=== PATIENT | female | born 1960 | race Hispanic/Latino ===

== ENCOUNTER 2017-07-02 13:34 | Outpatient (CLI) | payer BC ==
--- NOTE | 2017-07-05 15:07 | MMO ---
BILATERAL SCREENING MAMMOGRAM: Date: 07/02/17 INDICATION: Annual exam. COMPARISON: Prior exam dated 04/06/15. FINDINGS: Interpretation of this exam was assisted with computer-aided detection. There are scattered fibroglandular elements bilaterally. There are benign-appearing calcifications bi laterally. No new suspicious mass, cluster of microcalcifications, or area of architectural distortion is eviden t. IMPRESSION: BIRADS 2: Benign Finding(s) Recommend routine annual mammographic screening. POS: [facility]
== END 2017-07-02 13:35 | disposition home or self-care (01) ==
LOC: SCSMAMMO 13:34
PROVIDERS: ATTEND Family Medicine
DX: Z12.31 Encounter for screening mammogram for malignant neoplasm of breast (principal)
CPT/HCPCS: 77067

== ENCOUNTER 2017-11-09 15:29 | Inpatient (IN) | payer BC, SELFPAY ==
[2017-11-09 16:01] LABS: #Basophils 0.1 thou/uL (0.0-0.2); #Eosinphils 0.1 thou/uL (0.0-0.7); #Monocytes 0.5 thou/uL (0.11-0.59); #Neutrophils 4.5 thou/uL (1.40-6.50); %Basophils 0.7 % (0.0-1.0); %Eosinophils 1.5 % (0.0-10.0); %Lymphocytes 28.2 % (21.0-51.0); %Monocytes 7.4 % (0.0-10.0); %Neutrophils 62.2 % (42.0-75.0); Hemoglobin 13.5 g/dL (12.0-16.0); Mean Corpuscular HGB CONC 33.9 g/dL (32.0-36.0); Mean Corpuscular Hemoglobin 30.6 pg (27.0-31.0); Mean Corpuscular Volume 90.2 fL (78.0-98.0); Mean Platelet Volume 7.8 fL (7.4-10.4); Platelet Count 195 thou/uL (130-400); RBC Distribution Width 11.9 % (11.5-14.5); Red Blood Cell (RBC) Count 4.42 mill/uL (4.20-5.40); White Blood Cell (WBC) Count 7.2 thou/uL (4.8-10.8)
[2017-11-09 16:24] LABS: ALT (SGPT) 21 U/L (8-55); AST (SGOT) 22 U/L (5-34); Alkaline Phosphatase 130 U/L (40-150); Anion Gap 18 mmol/L (10-20); BUN (Urea Nitrogen) 37 mg/dL (9.8-20.1); Bilirubin, Total 0.3 mg/dL (0.2-1.2); Calc. Creatinine Clearance 0 mL/min (70-130); Calcium 9.6 mg/dL (7.8-10.44); Carbon Dioxide 24 mmol/L (22-29); Chloride 96 mmol/L (98-107); Estimated GFR-MDRD 38; Globulin 3.6 g/dL (2.4-3.5); Glucose 685 mg/dL (70-105); Magnesium 2.4 mg/dL (1.6-2.6); Phosphorus 4.1 mg/dL (2.3-4.7); Potassium 4.8 mmol/L (3.5-5.1); Protein, Total 7.6 g/dL (6.0-8.3); Sodium 133 mmol/L (136-145)
[2017-11-09 16:25] LABS: CKMB 2.5 ng/mL (0-6.6); Troponin I Less than 0.010 ng/mL (< 0.028)
[2017-11-09] MEDS ORDERED: Insulin Regular 300 UNITS/3 ML VIAL ONE (16:29)
[2017-11-09] MEDS ORDERED: Ondansetron HCl/PF 4 MG/2 ML Vial ONE (16:29)
[2017-11-09 18:14] LABS: Bilirubin Negative (Negative); Blood, Urine Negative (Negative); Clarity CLEAR (Clear); Glucose, Urine (Dipstick) >=1000 mg/dL (Negative); Leukocyte Negative (Negative); Nitrite Negative (Negative); Protein, Urine (Dipstick) Negative (Neg-Trace); Specific Gravity, Urine 1.034 (1.002-1.036); Urobilinogen 0.2 mg/dL (0.2-1.0); pH, Urine 5.5 (5.0-9.0)
[2017-11-09] MEDS: Sodium Chloride 0.9% 1,000 ML IV SCH (18:39)
[2017-11-09] MEDS ORDERED: Ondansetron ODT 4 MG TAB SL PRN (19:07)
[2017-11-09] MEDS ORDERED: Ondansetron HCl/PF 4 MG/2 ML Vial IVP PRN (19:07)
[2017-11-09] MEDS ORDERED: Acetaminophen 325 MG TAB PO PRN (19:07)
[2017-11-09 19:30] VITALS: TEMP 98.5
[2017-11-09] MEDS ORDERED: Dextrose 5% in Water 1,000 ML IV PRN (21:37)
[2017-11-09] MEDS ORDERED: HumaLOG 300 UNITS/3 ML VIAL SC PRN (21:37)
[2017-11-09] MEDS ORDERED: Dextrose 50% Abboject 50 ML SYRINGE SLOW IVP PRN (21:37)
[2017-11-09 21:55] VITALS: BMI 20.5
[2017-11-10] MEDS: Sodium Chloride 0.9% 1,000 ML IV SCH (04:45)
[2017-11-10 04:54] LABS: #Basophils 0.1 thou/uL (0.0-0.2); #Eosinphils 0.2 thou/uL (0.0-0.7); #Monocytes 0.6 thou/uL (0.11-0.59); #Neutrophils 2.6 thou/uL (1.40-6.50); %Basophils 1.2 % (0.0-1.0); %Eosinophils 3.6 % (0.0-10.0); %Lymphocytes 46.6 % (21.0-51.0); %Monocytes 8.7 % (0.0-10.0); %Neutrophils 39.8 % (42.0-75.0); Hemoglobin 12.2 g/dL (12.0-16.0); Mean Corpuscular HGB CONC 34.4 g/dL (32.0-36.0); Mean Corpuscular Hemoglobin 31.2 pg (27.0-31.0); Mean Corpuscular Volume 90.5 fL (78.0-98.0); Mean Platelet Volume 7.4 fL (7.4-10.4); Platelet Count 174 thou/uL (130-400); RBC Distribution Width 12.1 % (11.5-14.5); Red Blood Cell (RBC) Count 3.91 mill/uL (4.20-5.40); White Blood Cell (WBC) Count 6.5 thou/uL (4.8-10.8)
--- NOTE | 2017-11-10 05:10 | HP ---
CODE STATUS: FULL CODE. PRIMARY CARE PHYSICIAN: Jack Hanson M.D. TIME OF EVALUATION: 07:50 p.m. CHIEF COMPLAINT: High blood sugar and increased urinary frequency. HISTORY OF PRESENT ILLNESS: This is a 56-year-old female patient with past medical history of diabet es, had been adjusting medications in the past, patient came because patient received evaluation for dizziness and visited and urgent care, they found the blood sugar was very high, she also reported as sociated polydipsia and polyuria, likely secondary to uncontrolled diabetes, no alleviating factors. REVIEW OF SYSTEMS: Constitutional: No fever or chills, generalized weakness. Respiratory: No coug h, sputum production or shortness of breath. Cardiovascular: No chest pain, palpitations, or shortn ess of breath. Gastrointestinal: No nausea, no vomiting, diarrhea or abdominal pain. 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 Genitourinary: No burning on urination. Extremities: No l eg swelling. Endocrine: Polyuria, polydipsia. All other systems were reviewed and were negative ex cept for the findings mentioned above. PAST MEDICAL HISTORY: Positive for diabetes, GERD, hypertension. PAST SURGICAL HISTORY: Hysterectomy. SOCIAL HISTORY: No alcohol use. FAMILY HISTORY: Coronary artery disease in the mother . ALLERGIES: No known drug allergies. REPORTED MEDICATIONS: Simvastatin, lisinopril, hydrochlorothiazide, Lantus 50 units once a day at [facility]. PHYSICAL EXAMINATION: VITAL SIGNS: On presentation, blood pressure 134/67 with heart rate 88, respiratory rate was 18, tem perature 98.6. GENERAL APPEARANCE: The patient is alert, oriented, not in any acute distress. HEENT: Eyes, normal conjunctivae. Moist oral mucosa. Anicteric. NECK: No JVD. RESPIRATORY: Bilateral air entry. No rales, no wheezing. Symmetric expansion. CARDIOVASCULAR: Normal rate, regular rhythm. No murmurs, no gallop. No edema. ABDOMEN: Soft, normal bowel sounds. MUSCULOSKELETAL: Baseline range of motion and strength. No tenderness. SKIN: Warm and intact. No pallor, no rash, no redness. NEUROLOGIC: Baseline sensory. No evidence of any new focal weakness. Baseline speech. Cranial ner ves seem to be intact. PSYCHIATRIC: The patient is in good mood. No anxiety. Oriented, optimal judgment. IMAGING: EKG was reviewed. The patient has normal sinus rhythm, possible left atrial enlargement, v entricular rate 84, NC 156, QRS 80, QT corrected 451. LABORATORY DATA: Her labs were reviewed. White count was 7.2, hemoglobin 13.5, MCV 90, platelet cou nt 195. Sodium is 133, potassium 4.8, chloride 96, carbon dioxide 24, anion gap 18, BUN 37 with crea tinine 1.43. The previous creatinine was 0.7 as per old records. GFR 38. Glucose 685, repeat one w as 301 and 209. Calcium 9.6, phosphorus 4.1, magnesium 2.4, total bilirubin 0.3. LFTs were normal. Globulin 3.6. Troponin was normal. The urine was done and showed ketonuria and glucosuria. Beta-h ydroxybutyrate on presentation was 1.41. ASSESSMENT AND PLAN: The patient will be placed in the hospital with following medical problems. 1. Uncontrolled diabetes. The patient presented with blood sugar 325, patient will need medication reconciliation especially with insulin before going home, and also I have discussed with her control of her diet and looks like she is not being compliant. This has gotten better control, there is no _ ____ there is normal bicarbonate, anion gap is closed. We will give hydration. We will place the pa tient on sliding scale. 2. Acute kidney injury. The patient has doubled her creatinine level from 0.7-1.4, from previous re cords, likely secondary to dehydration from diuresis from hyperglycemia, we will hydrate, we will mon itor, we will adjust treatment as needed. 3. History of hypertension, we will reconcile home medications, is controlled, chronic. 4. Deep venous thrombosis prophylaxis.
[2017-11-10 05:14] LABS: Anion Gap 12 mmol/L (10-20); BUN (Urea Nitrogen) 23 mg/dL (9.8-20.1); Calc. Creatinine Clearance 65 mL/min (70-130); Calcium 8.5 mg/dL (7.8-10.44); Carbon Dioxide 23 mmol/L (22-29); Chloride 107 mmol/L (98-107); Estimated GFR-MDRD 76; Glucose 264 mg/dL (70-105); Sodium 138 mmol/L (136-145)
[2017-11-10 07:42] VITALS: BP 109/64
[2017-11-10] MEDS: HumaLOG 300 UNITS/3 ML VIAL SC SCH ×2 (08:56→12:55)
[2017-11-10] MEDS ORDERED: Enoxaparin Sodium 40 MG/0.4 ML SYRINGE SC SCH (09:00)
[2017-11-10] MEDS ORDERED: Lisinopril/Hydrochlorothiazide 20 mg/12.5 mg Tablet PO SCH (09:00)
[2017-11-10] MEDS ORDERED: Prevnar 13-Val Conj/PF 0.5 ML SYRINGE IM ONE (09:00)
[2017-11-10] MEDS ORDERED: INSULIN LISPRO 5 UNIT SC SCH (09:00)
--- NOTE | 2017-11-10 16:12 | PDOC.PN ---
- Subjective Encounter Start Date: 11/10/17 Encounter Start Time: 16:10 Subjective: no new complaints. feels better - Objective Resuscitation Status: Resuscitation Status FULL:Full Resuscitation MAR Reviewed: Yes Vital Signs & Weight: Vital Signs (12 hours) Temp Pulse Resp BP Pulse Ox 11/10/17 10:12 73 11/10/17 08:00 98.5 F 73 16 100 11/10/17 07:40 98.5 F 73 16 109/64 100 Weight Admit Weight 116 lb 1 oz Weight 116 lb 1 oz I&O: 11/09/17 11/10/17 11/11/17 06:59 06:59 06:59 Intake Total 1000 240 Output Total 600 Balance 400 240 Result Diagrams: 11/10/17 04:09 11/10/17 04:09 Additional Labs: Accuchecks 11/10/17 11/10/17 11/09/17 12:53 04:24 20:07 POC Glucose 199 H 218 H 219 H Phys Exam - Physical Examination Constitutional: NAD HEENT: PERRLA, moist MMs, sclera anicteric, oral pharynx no lesions Neck: no nodes, no JVD, supple, full ROM Respiratory: no wheezing, no rales, no rhonchi, clear to auscultation bilateral Cardiovascular: RRR, no significant murmur, no rub Gastrointestinal: soft, non-tender, no distention, positive bowel sounds Musculoskeletal: no edema, pulses present Neurological: non-focal, normal sensation, moves all 4 limbs Dx/Plan (1) Hyperglycemia Code(s): R73.9 - HYPERGLYCEMIA, UNSPECIFIED Status: Acute (2) Diabetes mellitus type 2 in obese Code(s): E11.9 - TYPE 2 DIABETES MELLITUS WITHOUT COMPLICATIONS; E66.9 - OBESITY , UNSPECIFIED Status: Acute (3) Hyperlipidemia Code(s): E78.5 - HYPERLIPIDEMIA, UNSPECIFIED Status: Acute (4) Hypertension Code(s): I10 - ESSENTIAL (PRIMARY) HYPERTENSION Status: Acute - Plan DVT proph w/SCDs restart lori meds. add Novolin 70/30 as pt can not afford Humalog -: cont lantus -: CM to assist w scrpit coverage -: DC home when arranged -: encoraged to go to PCP w BS log * . Review of Systems - Review of Systems Constitutional: negative: fever, chills, sweats, weakness, malaise, other ENT: negative: Ear Pain, Ear Discharge, Nose Pain, Nose Discharge, Nose Congestion, Mouth Pain, Mouth Swelling, Throat Pain, Throat Swelling, Other Respiratory: negative: Cough, Dry, Shortness of Breath, Hemoptysis, SOB with Excertion, Pleuritic Pain, Sputum, Wheezing Cardiovascular: negative: chest pain, palpitations, orthopnea, paroxysmal nocturnal dyspnea, edema, light headedness, other Gastrointestinal: negative: Nausea, Vomiting, Abdominal Pain, Diarrhea, Constipation, Melena, Hematochezia, Other Genitourinary: negative: Dysuria, Frequency, Incontinence, Hematuria, Retention , Other Musculoskeletal: negative: Neck Pain, Shoulder Pain, Arm Pain, Back Pain, Hand Pain, Leg Pain, Foot Pain, Other - Medications/Allergies Allergies/Adverse Reactions: Allergies Allergy/AdvReac Type Severity Reaction Status Date / Time No Known Allergies Allergy Verified 11/09/17 20:00 Medications: Current Medications Atorvastatin Calcium (Lipitor) 10 mg PO HS [facility] Dextrose/Water (Dextrose 50%) 25 gm SLOW IVP PRN PRN PRN Reason: Hypoglycemia Enoxaparin Sodium (Lovenox) 40 mg SC 0900 [facility] Last Admin: 11/10/17 08:58 Dose: 40 mg Glucagon (Glucagon) 1 mg IM PRN PRN PRN Reason: Hypoglycemia Lisinopril/HCTZ (Prinizide 20-12.5) 1 tab PO DAILY [facility] Last Admin: 11/10/17 10:12 Dose: Not Given Dextrose/Water (D5w) 1,000 mls @ 0 mls/hr IV .Q0M PRN; As Directed PRN Reason: Hypoglycemia Insulin Glargine 50 units/ (Miscellaneous Medication) 0.5 mls @ 0 mls/hr [facility] Insulin Human Lispro (Humalog) 0 units SC .MILD SLIDING SCALE PRN PRN Reason: Mild Correctional Scale Insulin Human Lispro (Humalog) 5 units SC TID [facility] Last Admin: 11/10/17 12:55 Dose: 5 units
[2017-11-10] MEDS ORDERED: Insulin Glargine 50 UNITS in Pre-Filled Syringe 1 EACH SC SCH (21:00)
[2017-11-10] MEDS ORDERED: Non-Formulary Item 1 EACH (Insulin Glargine,Hum.Rec.Anlog [Lantus Solostar] 50 UNIT) SQ SCH (21:00)
[2017-11-10] MEDS ORDERED: Simvastatin 20 MG TAB PO SCH (21:00)
[2017-11-10] MEDS ORDERED: Atorvastatin Calcium 10 MG TAB PO SCH (21:00)
--- NOTE | 2017-11-11 02:25 | DIS ---
DATE OF ADMISSION: 11/09/2017 DATE OF DISCHARGE: 11/10/2017 CONDITION AT THE TIME OF DISCHARGE: Stable and improved. PRIMARY CARE PHYSICIAN: Jack Hanson M.D. DISCHARGE DIAGNOSES: 1. Hyperglycemia secondary to medication noncompliance. 2. Diabetes mellitus, type 2. 3. Hypertension. 4. Dyslipidemia. DISCHARGE MEDICATIONS: New medications: Novolin 70/30, 15 units b.i.d. Continue home medication as per the HPI, Lantus 50 units daily, Zocor daily and Prinzide 20/12.5 mg daily. DISCHARGE DISPOSITION: Home. The patient was seen and examined prior to discharge. Please see hospitalist progress note from the date of discharge for further detail including [id number] interaction. HISTORY OF PRESENTING ILLNESS: Ms. Beckham is a known diabetic, who presented to the emergency room with complaints of weakness, polyuria, polydipsia, and was found to be significantly hyperglycemic wi th a blood sugar over 600 without evidence of diabetic ketoacidosis. She was admitted for further ev aluation. Please see admission history and physical for further details. She was hemodynamically st able. HOSPITAL COURSE: The patient reported that she was not able to afford her bolus insulin that she is supposed to take 5 NS 3 times a day. She is taking her Lantus and her medication for blood pressure. She was switched to Novolin 70/30, which is little bit cheaper and financial operations clerk was provided to th e patient with a GoodRx prescription. Her blood sugars were monitored and were under much better con trol. She was treated with insulin sliding scale as well as restarting her Lantus. She exhibited de sire to go home and after the medication was arranged and the blood sugars were control, she was disc harged.
== END 2017-11-10 18:00 | disposition home or self-care (01) | DRG 638 ==
LOC: ERS 15:29 → T4-A 17:47
PROVIDERS: ADMIT Family Medicine; ATTEND Family Medicine
DX: E11.65 Type 2 diabetes mellitus with hyperglycemia (principal); N17.9 Acute kidney failure, unspecified; K21.9 Gastro-esophageal reflux disease without esophagitis; I10 Essential (primary) hypertension; Z79.4 Long term (current) use of insulin; E86.0 Dehydration; Z91.14 Patient's other noncompliance with medication regimen; E78.5 Hyperlipidemia, unspecified
CPT/HCPCS: 36415; 36416; 80048; 80053; 81003; 82010; 82553; 83735; 84100; 84484; 85025; 87086; 93005; 96361; 96374; 96375; J1650; J1815; J2405

== ENCOUNTER 2018-05-28 17:48 | Emergency (ER) | payer SELFPAY ==
[2018-05-28] MEDS ORDERED: Proparacaine 0.5% Opth 15 ML BOT ONE (19:19)
[2018-05-28] MEDS ORDERED: Fluorescein Opthalmic Strip ONE (19:19)
--- NOTE | 2018-05-28 20:18 | CT ---
CT OF THE BRAIN WITHOUT CONTRAST 05/28/18 INDICATION: Patient had a head injury where she hit her head on a dumpster door two days ago without history of l oss of consciousness. Patient reports a contusion on the head with neck and back pain. COMPARISON: Prior CT of the brain dated 11/25/04. FINDINGS: No acute infarct, hemorrhage, or hydrocephalus is present. The septum pellucidum and third ventricle are midline. The mastoid air cells are clear. The visualized paranasal sinuses are clear. The skull is intact. IMPRESSION: No acute intracranial abnormality. POS: [facility]
== END 2018-05-28 20:23 | disposition home or self-care (01) ==
LOC: ERS 17:48
DX: S09.90XA Unspecified injury of head, initial encounter (principal); S16.1XXA Strain of muscle, fascia and tendon at neck level, initial encounter; E11.9 Type 2 diabetes mellitus without complications; K21.9 Gastro-esophageal reflux disease without esophagitis; I10 Essential (primary) hypertension; Z79.4 Long term (current) use of insulin; Z79.899 Other long term (current) drug therapy; W22.8XXA Striking against or struck by other objects, initial encounter
CPT/HCPCS: 70450

== ENCOUNTER 2019-03-07 11:23 | Emergency (ER) | payer OTHER ==
[2019-03-07 12:18] LABS: #Basophils 0.1 thou/uL (0.0-0.2); #Eosinphils 0.2 thou/uL (0.0-0.7); #Lymphocytes 1.9 thou/uL (1.20-3.40); #Monocytes 0.4 thou/uL (0.11-0.59); %Basophils 0.8 % (0.0-1.0); %Eosinophils 2.4 % (0.0-10.0); %Lymphocytes 25.2 % (21.0-51.0); %Monocytes 5.7 % (0.0-10.0); %Neutrophils 65.9 % (42.0-75.0); Hemoglobin 12.7 g/dL (12.0-16.0); Mean Corpuscular HGB CONC 33.4 g/dL (32.0-36.0); Mean Corpuscular Hemoglobin 30.1 pg (27.0-31.0); Mean Platelet Volume 7.2 fL (7.4-10.4); Platelet Count 239 thou/uL (130-400); RBC Distribution Width 12.6 % (11.5-14.5); Red Blood Cell (RBC) Count 4.21 mill/uL (4.20-5.40); White Blood Cell (WBC) Count 7.6 thou/uL (4.8-10.8)
--- NOTE | 2019-03-07 12:37 | RAD ---
PORTABLE CHEST: HISTORY: Chest pain. FINDINGS: Lung yo are clear. No infiltrate. No vascular congestion or edema. Heart size within normal ra nge. IMPRESSION: No acute process. POS: OFF
[2019-03-07 12:45] LABS: ALT (SGPT) 20 U/L (8-55); AST (SGOT) 23 U/L (5-34); Albumin 3.9 g/dL (3.5-5.0); Alkaline Phosphatase 69 U/L (40-110); Anion Gap 9 mmol/L (10-20); BUN (Urea Nitrogen) 21 mg/dL (9.8-20.1); Bilirubin, Total 0.4 mg/dL (0.2-1.2); CK (CPK) 69 U/L (29-168); Calc. Creatinine Clearance 0 mL/min (70-130); Calcium 9.3 mg/dL (7.8-10.44); Carbon Dioxide 33 mmol/L (22-29); Chloride 95 mmol/L (98-107); Estimated GFR-MDRD 71; Glucose 282 mg/dL (70-105); Protein, Total 6.9 g/dL (6.0-8.3); Sodium 133 mmol/L (136-145)
[2019-03-07] MEDS ORDERED: Ketorolac Tromethamine 30 MG/ML VIAL ONE (12:47)
[2019-03-07] MEDS ORDERED: diphenhydrAMINE 50 MG/ML VIAL ONE (12:47)
[2019-03-07] MEDS ORDERED: Ondansetron PF 4 MG/2 ML Vial ONE (12:53)
[2019-03-07] MEDS ORDERED: Meclizine HCl 25 MG TAB ONE (13:03)
--- NOTE | 2019-03-07 14:40 | CT ---
CT Cervical Spine WO Con Indication: Neck pain and dizziness COMPARISON: None. FINDINGS: Fracture: None. Spinal alignment: There is straightening of the normal cervical lordosis. There is mild anterior bello slation of C7 on T1 which is likely degenerative. There is ankylosis of the left C4-5 facet complex. Craniocervical junction: Within normal limits. Vertebral body heights: Maintained. Cervical spine degenerative change: There is advanced disc degenerative disease at C3-4 and T1-T2. Th ere is moderate to severe multilevel disc degenerative disease at the remaining cervical intervertebral levels. There is ankylosis of the left C4-C5 facet complex. Lung apices: Clear. IMPRESSION: No acute osseous abnormality. Severe cervical spondylosis
--- NOTE | 2019-03-07 14:49 | CT ---
CT HEAD WITHOUT CONTRAST: Axial tomograms were obtained without IV enhancement. INDICATION: Dizziness. FINDINGS: The ventricles have normal size and position. No evidence of intracranial mass, infarct, or hemorrha ge. IMPRESSION: No acute abnormality. POS: OFF
== END 2019-03-07 16:03 | disposition home or self-care (01) ==
LOC: ERS 11:23
DX: R42 Dizziness and giddiness (principal); E11.9 Type 2 diabetes mellitus without complications; K21.9 Gastro-esophageal reflux disease without esophagitis; I10 Essential (primary) hypertension; Z79.4 Long term (current) use of insulin; Z79.899 Other long term (current) drug therapy
CPT/HCPCS: 70450; 71045; 72125; 80053; 82550; 84484; 85025; 93005; 96361; 96374; 96375; J1200; J1885; J2405; J8597

== ENCOUNTER 2019-03-17 09:20 | Outpatient (CLI) | payer OTHER ==
--- NOTE | 2019-03-17 09:59 | MMO ---
Bilateral MAMMO Bilat Screen [facility]. CLINICAL HISTORY: Patient is 58 years old and is seen for screening. The patient has no family history of breast cancer. The patient has no personal history of cancer. VIEWS: The views performed were: bilateral craniocaudal with tomosynthesis and bilateral mediolateral oblique with tomosynthesis. FILMS COMPARED: The present examination has been compared to prior imaging studies performed at [facility] on 02/24/2010, 12/06/2012, 03/04/2014 and 03/29/2015. This study has been interpreted with the assistance of computer-aided detection. MAMMOGRAM FINDINGS: There are scattered fibroglandular densities. There are stable benign appearing calcifications seen in both breasts. There are no suspicious masses, suspicious calcifications, or new areas of architectural distortion. IMPRESSION: THERE IS NO MAMMOGRAPHIC EVIDENCE OF MALIGNANCY. A ROUTINE FOLLOW-UP MAMMOGRAM IN 1 YEAR IS RECOMMENDED. THE RESULTS OF THIS EXAM WERE SENT TO THE PATIENT. ACR BI-RADS Category 2 - Benign finding MAMMOGRAPHY NOTE: 1. A negative mammogram report should not delay a biopsy if a dominant of clinically suspicious mass is present. 2. Approximately 10% to 15% of breast cancers are not detected by mammography. 3. Adenosis and dense breasts may obscure an underlying neoplasm. Reported by: MITCH CARTWRIGHT MD Electonically Signed: [id number]
== END 2019-03-17 09:21 | disposition home or self-care (01) ==
LOC: BICMAMMO 09:20
PROVIDERS: ATTEND Family Medicine
DX: Z12.31 Encounter for screening mammogram for malignant neoplasm of breast (principal)
CPT/HCPCS: 77063; 77067

== ENCOUNTER 2022-08-15 17:20 | Observation (INO) | payer SELFPAY ==
[~2022-08-15 17:20] MED LIST: Iopamidol 370 76% 100 ML VIAL ONE
[2022-08-15] MEDS ORDERED: Famotidine/PF 20 mg/2ml Vial ONE (18:11)
[2022-08-15] MEDS ORDERED: Ondansetron PF 4 MG/2 ML Vial ONE (18:11)
[2022-08-15 18:16] LABS: #Eosinphils 0.3 thou/uL (0.0-0.7); #Monocytes 0.7 thou/uL (0.11-0.59); #Neutrophils 5.1 thou/uL (1.40-6.50); %Basophils 0.2 % (0.0-1.0); %Lymphocytes 27.5 % (21.0-51.0); %Monocytes 7.9 % (0.0-10.0); Hemoglobin 10.8 g/dL (12.0-16.0); Mean Corpuscular Hemoglobin 27.7 pg (27.0-31.0); Mean Corpuscular Volume 86.4 fl (78.0-98.0); Mean Platelet Volume 8.9 fL (7.4-10.4); Platelet Count 317 10x3/uL (130-400); RBC Distribution Width 13.9 % (11.5-14.5); White Blood Cell (WBC) Count 8.4 10x3/uL (4.8-10.8)
[2022-08-15 18:36] LABS: ALT (SGPT) 14 U/L (8-55); AST (SGOT) 19 U/L (5-34); Albumin 3.5 g/dL (3.4-4.8); Alkaline Phosphatase 112 U/L (40-110); Anion Gap 17 mmol/L (10-20); BUN (Urea Nitrogen) 54 mg/dL (9.8-20.1); Bilirubin, Total 0.2 mg/dL (0.2-1.2); Calc. Creatinine Clearance 0 mL/min (70-130); Calcium 8.5 mg/dL (7.8-10.44); Carbon Dioxide 20 mmol/L (23-31); Chloride 106 mmol/L (98-107); Estimated GFR 44; Glucose 241 mg/dL (80-115); Lipase 20 U/L (8-78); Potassium 4.7 mmol/L (3.5-5.1); Protein, Total 6.5 g/dL (5.8-8.1); Sodium 138 mmol/L (136-145)
[2022-08-15] MEDS ORDERED: Aspirin Chewable 81 MG TAB ONE (20:27)
[2022-08-15 22:45] VITALS: BMI 25.6
[2022-08-15] MEDS ORDERED: Ondansetron PF 4 MG/2 ML Vial IVP PRN (23:30)
[2022-08-15] MEDS ORDERED: Ondansetron ODT 4 MG TAB SL PRN (23:30)
[2022-08-15] MEDS ORDERED: Acetaminophen 325 MG TAB PO PRN (23:30)
[2022-08-15] MEDS ORDERED: Nitroglycerin 0.4 MG TAB (25 Tab Bottle) SL PRN (23:53)
[2022-08-15] MEDS ORDERED: Senokot S 8.6-50 MG TAB PO PRN (23:57)
[2022-08-15] MEDS ORDERED: Dextrose 5% in Water 1,000 ML IV PRN (23:57)
[2022-08-15] MEDS ORDERED: HumaLOG 300 UNITS/3 ML VIAL SC PRN ×2 (23:57)
[2022-08-15] MEDS ORDERED: Dextrose 50% Abboject 50 ML SYRINGE SLOW IVP PRN (23:57)
[2022-08-16 00:28] LABS: Hemoglobin A1c 9.3 % (4.0-6.0)
[2022-08-16 04:59] LABS: #Eosinphils 0.3 thou/uL (0.0-0.7); #Monocytes 0.9 thou/uL (0.11-0.59); #Neutrophils 4.2 thou/uL (1.40-6.50); %Basophils 0.3 % (0.0-1.0); %Lymphocytes 28.9 % (21.0-51.0); %Monocytes 11.7 % (0.0-10.0); %Neutrophils 54.8 % (42.0-75.0); Hemoglobin 10.8 g/dL (12.0-16.0); Mean Corpuscular Hemoglobin 28.1 pg (27.0-31.0); Mean Corpuscular Volume 87.8 fl (78.0-98.0); Platelet Count 296 10x3/uL (130-400); Red Blood Cell (RBC) Count 3.85 mill/uL (4.20-5.40); White Blood Cell (WBC) Count 7.7 10x3/uL (4.8-10.8)
[2022-08-16 05:24] LABS: Anion Gap 13 mmol/L (10-20); BUN (Urea Nitrogen) 39 mg/dL (9.8-20.1); Calc. Creatinine Clearance 55 mL/min (70-130); Calcium 9.3 mg/dL (7.8-10.44); Carbon Dioxide 25 mmol/L (23-31); Cardiac Risk 4.8 (Less than 4.5); Chloride 108 mmol/L (98-107); Cholesterol 236 mg/dl (< 200 Desired); Estimated GFR 58; Glucose 58 mg/dL (80-115); HDL Cholesterol 49 mg/dL (>60 Neg Risk); LDL Cholesterol, Calculated 159 mg/dL; Potassium 3.8 mmol/L (3.5-5.1); Sodium 142 mmol/L (136-145); Triglycerides 142 mg/dL (Less than 150)
[2022-08-16] MEDS ORDERED: Atorvastatin Calcium 20 MG TAB PO SCH (09:00)
[2022-08-16] MEDS ORDERED: Aspirin Chewable 81 MG TAB PO SCH (09:00)
[2022-08-16] MEDS ORDERED: Lisinopril 20 MG TAB PO SCH (09:00)
[2022-08-16] MEDS ORDERED: Hydrochlorothiazide 25 MG TAB PO SCH (09:00)
[2022-08-16] MEDS ORDERED: Insulin Glargine 30 UNITS/0.3 ML VIAL SC SCH (09:00)
[2022-08-16] MEDS ORDERED: Amlodipine 10 MG TAB PO SCH (09:00)
[2022-08-16] MEDS ORDERED: Loratadine 10 MG TAB PO SCH (09:00)
[2022-08-16 09:40] LABS: Troponin I Less than 0.010 ng/mL (< 0.028)
[2022-08-16] MEDS ORDERED: Regadenoson 0.4 MG/5 ML SYRINGE ONE (09:40)
[2022-08-16 16:29] VITALS: BP 193/89; TEMP 98.7
[2022-08-16] MEDS ORDERED: DULoxetine 30 MG CAP PO SCH (21:00)
== END 2022-08-16 16:50 | disposition home or self-care (01) ==
LOC: ERS 17:20 → 2SW 20:44
PROVIDERS: ADMIT Student in an Organized Health Care Education/Training Program; ATTEND Nurse Practitioner Family
DX: R07.9 Chest pain, unspecified (principal); I44.7 Left bundle-branch block, unspecified; E11.9 Type 2 diabetes mellitus without complications; E78.5 Hyperlipidemia, unspecified; K21.9 Gastro-esophageal reflux disease without esophagitis; I11.9 Hypertensive heart disease without heart failure; I08.1 Rheumatic disorders of both mitral and tricuspid valves; Z91.148 Patient's other noncompliance with medication regimen for other reason; Z79.4 Long term (current) use of insulin; Z79.899 Other long term (current) drug therapy
CPT/HCPCS: 36415; 36416; 71045; 74177; 78452; 80048; 80053; 80061; 83036; 83690; 84484; 85025; 93005; 93017; 93306; 94760; 96374; 96375; A9500; G0378; J2405; J2785; Q9967; S0028

== ENCOUNTER 2024-01-22 11:20 | Outpatient (CLI) | payer MEDICARE | END 2024-01-22 11:21 | disposition home or self-care (01) | LOC: BICMAMMO 11:20 | PROVIDERS: ATTEND Family Medicine | DX: Z12.31 Encounter for screening mammogram for malignant neoplasm of breast (principal) | CPT/HCPCS: 77063; 77067 ==

== ENCOUNTER 2024-02-05 12:25 | Outpatient (CLI) | payer MEDICARE | END 2024-02-05 12:26 | disposition home or self-care (01) | LOC: BICULT 12:25 | PROVIDERS: ATTEND Family Medicine | DX: I70.213 Atherosclerosis of native arteries of extremities with intermittent claudication, bilateral legs (principal) | CPT/HCPCS: 93923 ==